=== PATIENT | female | born 1950 | race Caucasian/White ===

== ENCOUNTER 2023-11-22 17:31 | Emergency (ER) | payer BC ==
[~2023-11-22] VITALS: Ht 154.9 cm; Wt 54.4 kg
[2023-11-22 17:31] VITALS: BP_SYST 156; PULSE 105; RESP 18; TEMP 99.4; O2SAT 95
[2023-11-22] MEDS: ONDANSETRON HCL 4 MG/2 ML VIAL IVP ONE (18:07)
[2023-11-22] MEDS: NACL 0.9% 1,000 ML IV ONE (18:07)
[2023-11-22 18:33] LABS: BASOPHILS # (AUTO) 0.1 K/uL (0.0-0.2); BASOPHILS % (AUTO) 0.6 % (0.0-2.0); EOSINOPHILS % (AUTO) 0.1 % (0.0-4.0); HEMATOCRIT 33.4 % (36-48); HEMOGLOBIN 11.2 g/dL (12.0-16.0); LYMPHOCYTES # (AUTO) 0.7 K/uL (1.0-5.5); LYMPHOCYTES % (AUTO) 7.2 % (20.5-51.5); MEAN CORPUSCULAR HEMOGLOBIN 34 pg (27-31); MEAN CORPUSCULAR HGB CONC 34 % (32-36); MEAN CORPUSCULAR VOLUME 101 fL (79.0-98.0); MONOCYTES # (AUTO) 0.6 K/uL (0.0-1.0); MONOCYTES % (AUTO) 5.8 % (1.7-9.3); NEUTROPHILS # (AUTO) 8.5 K/uL (1.8-7.7); NEUTROPHILS % (AUTO) 86.3 % (40.0-70.0); PLATELET COUNT (AUTO) 147 K/uL (130-430); RED BLOOD CELL COUNT(AUTO) 3.31 MIL/uL (4.2-6.2); RED CELL DISTRIBUTION WIDTH 14.7 % (9.0-15.0); WHITE BLOOD COUNT (AUTO) 9.8 K/uL (4.8-10.8)
[2023-11-22 19:00] LABS: ALANINE AMINOTRANSFERASE 47 U/L (12-78); ALBUMIN 2.9 g/dL (3.4-4.8); ANION GAP 13 (5-15); ASPARTATE AMINOTRANSFERASE 58 U/L (10-37); CALCIUM 8.5 mg/dL (8.4-11.0); CARBON DIOXIDE 22 mmol/L (23-29); CHLORIDE 106 mmol/L (98-107); CREATININE 0.87 mg/dL (0.55-1.30); GLUCOSE 146 mg/dL (74-106); SODIUM SERUM 141 mmol/L (136-145); TOTAL BILIRUBIN 0.7 mg/dL (0.0-1.0); TOTAL PROTEIN, SERUM 7.9 g/dL (6.4-8.3); UREA NITROGEN, BLOOD 16 mg/dL (8-21)
[2023-11-22 19:02] LABS: BILIRUBIN,DIRECT 0.2 mg/dL (0.0-0.3)
[2023-11-22 20:59] LABS: BILIRUBIN,URINE NEGATIVE (NEGATIVE); BLOOD, URINE 3+ (NEGATIVE); CLARITY/URINE CLEAR (CLEAR); COLOR,URINE YELLOW (YELLOW); GLUCOSE,URINE NEGATIVE (NEGATIVE); KETONES,URINE NEGATIVE (NEGATIVE); LEUKOCYTE ESTERASE ,URINE 2+ (NEGATIVE); NITRITE, URINE POSITIVE (NEGATIVE); PROTEIN URINE 1+ (NEGATIVE); UROBILINOGEN,URINE 0.2 (0.2-1.0)
[2023-11-22 21:16] LABS: BACTERIA,URINE MANY /HPF (None Seen)
[2023-11-22] MEDS: CIPROFLOXACIN HCL 500 MG TABLET PO ONE (21:39)
[2023-11-22] MEDS ORDERED: CIPR500T5 PO (21:40)
[2023-11-22] MEDS ORDERED: METO-290 PO (21:40)
[2023-11-22 21:47] VITALS: BP_SYST 130; PULSE 78; RESP 20; TEMP 98; O2SAT 98
== END 2023-11-22 21:47 | disposition home or self-care (01) ==
LOC: SED 17:31
DX: A08.4 Viral intestinal infection, unspecified (principal); N39.0 Urinary tract infection, site not specified; E11.9 Type 2 diabetes mellitus without complications; I10 Essential (primary) hypertension; Z88.0 Allergy status to penicillin; Z79.899 Other long term (current) drug therapy; Z79.2 Long term (current) use of antibiotics
CPT/HCPCS: 99285; 96374; 71045; 96361; 80076; 80048; 81001; 85025; 87086; 87186; 84484; 36415; 93005; 82948; J2405; J7030; 81000; 81015

== ENCOUNTER 2023-12-31 20:17 | Inpatient (IN) | payer BC ==
[~2023-12-31] VITALS: Ht 165.1 cm; Wt 63.5 kg
[~2023-12-31 20:17] MED LIST: CIPR500T5 PO; METO-290 PO
[2023-12-31 20:23] VITALS: BP_SYST 143; PULSE 100; RESP 19; TEMP 98.1; O2SAT 95
[2023-12-31 20:30] VITALS: BP_SYST 143; PULSE 100; RESP 18; TEMP 98; O2SAT 95
[2023-12-31 23:49] LABS: BASOPHILS # (AUTO) 0.1 K/uL (0.0-0.2); EOSINOPHILS # (AUTO) 0.2 K/uL (0.0-0.4); EOSINOPHILS % (AUTO) 2.5 % (0.0-4.0); HEMATOCRIT 28.5 % (36-48); HEMOGLOBIN 9.7 g/dL (12.0-16.0); LYMPHOCYTES % (AUTO) 12.2 % (20.5-51.5); MEAN CORPUSCULAR HEMOGLOBIN 34 pg (27-31); MEAN CORPUSCULAR HGB CONC 34 % (32-36); MEAN CORPUSCULAR VOLUME 99 fL (79.0-98.0); MONOCYTES # (AUTO) 0.7 K/uL (0.0-1.0); MONOCYTES % (AUTO) 8.2 % (1.7-9.3); NEUTROPHILS # (AUTO) 6.2 K/uL (1.8-7.7); NEUTROPHILS % (AUTO) 76.1 % (40.0-70.0); PLATELET COUNT (AUTO) 140 K/uL (130-430); RED BLOOD CELL COUNT(AUTO) 2.87 MIL/uL (4.2-6.2); RED CELL DISTRIBUTION WIDTH 15.1 % (9.0-15.0); WHITE BLOOD COUNT (AUTO) 8.1 K/uL (4.8-10.8)
[2024-01-01] VITALS (7 sets, daily range): BP systolic 125–148; PULSE 77–86; RESP 16–18; TEMP 97.6–98.9; O2SAT 95–99
[2024-01-01 00:15] LABS: ANION GAP 11 (5-15); CALCIUM 9.3 mg/dL (8.4-11.0); CARBON DIOXIDE 22 mmol/L (23-29); CHLORIDE 110 mmol/L (98-107); CREATININE 0.87 mg/dL (0.55-1.30); GLUCOSE 133 mg/dL (74-106); POTASSIUM 4.1 mmol/L (3.5-5.1); SODIUM SERUM 143 mmol/L (136-145); UREA NITROGEN, BLOOD 24 mg/dL (8-21)
[2024-01-01] MEDS: ACETAMINOPHEN 500 MG TABLET PO ONE (00:35)
[2024-01-01] MEDS: NACL 0.9% 1,000 ML IV ONE (01:51)
[2024-01-01] MEDS ORDERED: METF-380 PO (02:00)
[2024-01-01] MEDS: D5/0.45 NS 1,000 ML IV SCH (03:00)
[2024-01-02 00:33] VITALS: BP_SYST 148; PULSE 76; RESP 15; TEMP 98.7; O2SAT 94
[2024-01-02 07:34] LABS: BASOPHILS # (AUTO) 0.1 K/uL (0.0-0.2); BASOPHILS % (AUTO) 0.8 % (0.0-2.0); EOSINOPHILS # (AUTO) 0.4 K/uL (0.0-0.4); EOSINOPHILS % (AUTO) 5.2 % (0.0-4.0); HEMATOCRIT 28.1 % (36-48); HEMOGLOBIN 9.2 g/dL (12.0-16.0); LYMPHOCYTES # (AUTO) 1.2 K/uL (1.0-5.5); LYMPHOCYTES % (AUTO) 15.6 % (20.5-51.5); MEAN CORPUSCULAR HEMOGLOBIN 33 pg (27-31); MEAN CORPUSCULAR HGB CONC 33 % (32-36); MEAN CORPUSCULAR VOLUME 100 fL (79.0-98.0); MONOCYTES # (AUTO) 0.7 K/uL (0.0-1.0); MONOCYTES % (AUTO) 9.3 % (1.7-9.3); NEUTROPHILS # (AUTO) 5.2 K/uL (1.8-7.7); NEUTROPHILS % (AUTO) 69.1 % (40.0-70.0); PLATELET COUNT (AUTO) 125 K/uL (130-430); RED CELL DISTRIBUTION WIDTH 15.5 % (9.0-15.0); WHITE BLOOD COUNT (AUTO) 7.6 K/uL (4.8-10.8)
[2024-01-02 07:47] LABS: ANION GAP 6 (5-15); CALCIUM 8.6 mg/dL (8.4-11.0); CARBON DIOXIDE 24 mmol/L (23-29); CHLORIDE 112 mmol/L (98-107); CREATININE 0.81 mg/dL (0.55-1.30); GLUCOSE 123 mg/dL (74-106); POTASSIUM 4.1 mmol/L (3.5-5.1); SODIUM SERUM 142 mmol/L (136-145); UREA NITROGEN, BLOOD 17 mg/dL (8-21)
[2024-01-02 08:00] VITALS: BP_SYST 153; PULSE 89; RESP 17; TEMP 98.9; O2SAT 98
[2024-01-02 12:31] VITALS: BP_SYST 149; PULSE 89; RESP 18; TEMP 100.2; O2SAT 95
[2024-01-02 16:58] VITALS: BP_SYST 150; PULSE 92; RESP 18; TEMP 100.8; O2SAT 95
[2024-01-02] MEDS: ACETAMINOPHEN 650 MG/20.3 ML UDC GT PRN (17:09)
[2024-01-02 18:55] VITALS: TEMP 98.8
[2024-01-02 20:00] VITALS: BP_SYST 154; PULSE 72; RESP 18; TEMP 98.6; O2SAT 95
[2024-01-03] VITALS: BP_SYST 151; PULSE 77; RESP 18; TEMP 98.6; O2SAT 96
[2024-01-03 08:00] VITALS: BP_SYST 151; PULSE 77; RESP 18; TEMP 99.7; O2SAT 98
[2024-01-03 11:07] VITALS: BP_SYST 112; PULSE 69; RESP 15; TEMP 99.4; O2SAT 96
[2024-01-03] MEDS ORDERED: LINA5TAB2 PO (13:59)
[2024-01-03] MEDS ORDERED: MELO-89 PO (13:59)
[2024-01-03 15:21] VITALS: BP_SYST 155; PULSE 89; RESP 16; TEMP 97.6; O2SAT 93
[2024-01-03 20:00] VITALS: BP_SYST 151; PULSE 79; RESP 20; TEMP 99; O2SAT 97
[2024-01-03 21:00] VITALS: O2SAT 97
[2024-01-03] MEDS: DONEPEZIL HCL 5 MG TABLET (ARICEPT) PO SCH (21:25)
[2024-01-04] VITALS: BP_SYST 163; PULSE 77; RESP 16; TEMP 99.6; O2SAT 93
[2024-01-04 08:00] VITALS: BP_SYST 139; PULSE 74; RESP 16; TEMP 97.1; O2SAT 97
[2024-01-04 08:13] LABS: BASOPHILS # (AUTO) 0.1 K/uL (0.0-0.2); BASOPHILS % (AUTO) 0.9 % (0.0-2.0); EOSINOPHILS # (AUTO) 0.4 K/uL (0.0-0.4); EOSINOPHILS % (AUTO) 5.8 % (0.0-4.0); HEMATOCRIT 29.3 % (36-48); HEMOGLOBIN 9.6 g/dL (12.0-16.0); LYMPHOCYTES # (AUTO) 1.2 K/uL (1.0-5.5); LYMPHOCYTES % (AUTO) 16.7 % (20.5-51.5); MEAN CORPUSCULAR HEMOGLOBIN 33 pg (27-31); MEAN CORPUSCULAR HGB CONC 33 % (32-36); MEAN CORPUSCULAR VOLUME 100 fL (79.0-98.0); MONOCYTES # (AUTO) 0.8 K/uL (0.0-1.0); MONOCYTES % (AUTO) 10.6 % (1.7-9.3); NEUTROPHILS # (AUTO) 4.8 K/uL (1.8-7.7); PLATELET COUNT (AUTO) 129 K/uL (130-430); RED BLOOD CELL COUNT(AUTO) 2.93 MIL/uL (4.2-6.2); RED CELL DISTRIBUTION WIDTH 15.4 % (9.0-15.0); WHITE BLOOD COUNT (AUTO) 7.3 K/uL (4.8-10.8)
[2024-01-04 08:22] LABS: ANION GAP 8 (5-15); CALCIUM 8.1 mg/dL (8.4-11.0); CARBON DIOXIDE 24 mmol/L (23-29); CHLORIDE 110 mmol/L (98-107); CREATININE 0.74 mg/dL (0.55-1.30); GLUCOSE 143 mg/dL (74-106); POTASSIUM 4.2 mmol/L (3.5-5.1); SODIUM SERUM 142 mmol/L (136-145); UREA NITROGEN, BLOOD 21 mg/dL (8-21)
[2024-01-04 11:11] VITALS: BP_SYST 159; PULSE 73; RESP 16; TEMP 97; O2SAT 98
[2024-01-04] MEDS: ACETAMINOPHEN 325 MG TABLET PO PRN (13:42)
[2024-01-04] MEDS: LOSARTAN POTASSIUM 25 MG TABLET PO ONE (14:15)
[2024-01-04 15:12] VITALS: BP_SYST 154; PULSE 80; RESP 16; TEMP 97.7; O2SAT 94
[2024-01-04 15:30] VITALS: BP_SYST 154; PULSE 80; RESP 16; TEMP 97.7; O2SAT 94
[2024-01-04 16:30] VITALS: BP_SYST 161; PULSE 71; RESP 18; TEMP 97.3; O2SAT 97
[2024-01-04] MEDS: hydrALAZINE HCL 25 MG TABLET PO PRN (17:31)
[2024-01-05] MEDS ORDERED: LOSARTAN POTASSIUM 25 MG TABLET PO SCH (09:00)
== END 2024-01-04 18:40 | DRG 965 ==
LOC: SED 20:17 → UNDOADMOB 01-01 01:42 → INTOOBSV 01-01 01:42 → SMU 01-01 01:42 → OBSVTOIN 01-01 01:42 → SMU 01-01 02:38 → OBSVTOIN 01-02 22:57
PROVIDERS: ADMIT Specialist; ATTEND Specialist
DX: S72.115A Nondisplaced fracture of greater trochanter of left femur, initial encounter for closed fracture (principal); S32.19XA Other fracture of sacrum, initial encounter for closed fracture; F03.90 Unspecified dementia, unspecified severity, without behavioral disturbance, psychotic disturbance, mood disturbance, and anxiety; S00.03XA Contusion of scalp, initial encounter; Z60.2 Problems related to living alone; W18.39XA Other fall on same level, initial encounter; I10 Essential (primary) hypertension; E11.9 Type 2 diabetes mellitus without complications; G89.29 Other chronic pain; M54.9 Dorsalgia, unspecified; Z88.0 Allergy status to penicillin; Z79.899 Other long term (current) drug therapy; Y93.89 Activity, other specified; Y92.89 Other specified places as the place of occurrence of the external cause; Y99.8 Other external cause status
CPT/HCPCS: 36415; 70450-TC; 72148; 72195; 73521; 73552; 80048; 85025; 93005; 93306; 97110-GO; 97110-GP; 97116-GP; 97530-GO; 97530-GP; 97535-GO; 99285